=== PATIENT | female | born 1985 | race African-American/Black ===

== ENCOUNTER 2019-06-11 07:35 | Emergency (ER) | payer SELFPAY ==
[~2019-06-11] VITALS: Ht 160 cm; Wt 63.5 kg
--- NOTE | 2019-06-11 08:12 | PHYS DOC ---
Past Medical History Past Medical History: Anemia Past Surgical History: No Surgical History Alcohol Use: Occasionally Drug Use: None Adult General Chief Complaint Chief Complaint: ABDOMINAL PAIN HPI HPI Patient is a 34 year old female with history of chronic anemia who presents with complaint of abdominal pain and back pain. Patient complaining of right lower quadrant pain as a constant cramping pain for the last 3 days with low back pain and rated her pain 8/10. Patient complaining of urinary frequency and dysuria without hematuria for the same time and states she had hematuria with the same symptom previously. Patient complaining of anorexia without nausea and vomiting, fever and chills, vaginal bleeding or discharge. Review of Systems Review of Systems Constitutional: Denies fever or chills [] Eyes: Denies change in visual acuity, redness, or eye pain [] HENT: Denies nasal congestion or sore throat [] Respiratory: Denies cough or shortness of breath [] Cardiovascular: No additional information not addressed in HPI [] GI: Denies nausea, vomiting, bloody stools or diarrhea , reports abdominal pain[] : Denies hematuria , reports dysuria and frequency[] Musculoskeletal: Reports back pain Integument: Denies rash or skin lesions [] Neurologic: Denies headache, focal weakness or sensory changes [] Endocrine: Denies polyuria or polydipsia [] All other systems were reviewed and found to be within normal limits, except as documented in this note. Current Medications Current Medications Current Medications Medications (Trade) Dose Ordered Sig/[place] Start Time Stop Time Status Last Admin Dose Admin Fentanyl Citrate (Fentanyl 2ml Vial) 50 mcg 1X ONCE 06/11/19 10:15 06/11/19 10:16 DC 06/11/19 10:12 50 MCG Ketorolac Tromethamine (Toradol 30mg Vial) 30 mg 1X ONCE 06/11/19 09:00 06/11/19 09:01 DC 06/11/19 09:17 30 MG Medroxyprogesterone Acetate (Depo-Provera Im) 150 mg 1X ONCE 06/11/19 14:00 06/11/19 14:01 UNV Ondansetron HCl (Zofran) 4 mg 1X ONCE 06/11/19 10:15 06/11/19 10:16 DC 06/11/19 10:12 4 MG Sodium Chloride 1,000 ml @ 1,000 mls/hr Q1H 06/11/19 08:12 06/11/19 09:11 DC 06/11/19 08:49 1,000 MLS/HR Allergies Allergies Allergies Coded Allergies Type Severity Reaction Last Updated Verified acetaminophen Allergy Unknown 06/11/19 Yes Physical Exam Physical Exam Constitutional: Well developed, well nourished, mild distress, non-toxic appearance. [] HENT: Normocephalic, atraumatic. Eyes: PERRLA, EOMI, conjunctiva normal, no discharge. [] Neck: Normal range of motion, no tenderness, supple, no stridor. [] Cardiovascular:Heart rate regular rhythm, no murmur [] Lungs & Thorax: Bilateral breath sounds clear to auscultation [] Abdomen: Bowel sounds normal, soft, right lower quadrant guarding, no tenderness, no masses, no pulsatile masses. [] Skin: Warm, dry, no erythema, no rash. [] Back: No tenderness, no CVA tenderness. [] Extremities: No tenderness, no cyanosis, no clubbing, ROM intact, no edema. [] Neurologic: Alert and oriented X 3, no focal deficits noted. [] Psychologic: Affect normal, judgement normal, mood normal. [] Current Patient Data Vital Signs Vital Signs Date Time Temp Pulse Resp B/P (MAP) Pulse Ox O2 Delivery O2 Flow Rate FiO2 06/11/19 07:50 97.9 81 18 122/72 (89) 100 Room Air 97.9 Lab Values Laboratory Tests Test 06/11/19 07:38 06/11/19 07:48 06/11/19 08:00 Urine Collection Type Unknown Urine Color [place] Urine Clarity Clear Urine pH 5.5 Urine Specific [place] >=1.030 Urine Protein Negative mg/dL (NEG-TRACE) Urine Glucose (UA) Negative mg/dL (NEG) Urine Ketones (Stick) Negative mg/dL (NEG) Urine Blood Negative (NEG) Urine Nitrite Negative (NEG) Urine Bilirubin Negative (NEG) Urine Urobilinogen Dipstick 0.2 mg/dL (0.2 mg/dL) Urine Leukocyte Esterase Negative (NEG) Urine RBC Occ /HPF (0-2) Urine WBC 1-4 /HPF (0-4) Urine Squamous Epithelial Cells Mod /LPF Urine Bacteria 0 /HPF (0-FEW) Urine Mucus Marked /LPF Sodium Level 142 mmol/L (136-145) Potassium Level 3.5 mmol/L (3.5-5.1) Chloride Level 106 mmol/L (98-107) Carbon Dioxide Level 22 mmol/L (21-32) Anion Gap 14 (6-14) Blood Urea Nitrogen 8 mg/dL (7-20) Creatinine 0.7 mg/dL (0.6-1.0) Estimated GFR (Cockcroft-Gault) 114.6 BUN/Creatinine Ratio 11 (6-20) Glucose Level 96 mg/dL (70-99) Calcium Level 9.0 mg/dL (8.5-10.1) Total Bilirubin 0.6 mg/dL (0.2-1.0) Aspartate Amino Transferase (AST) 15 U/L (15-37) Alanine Aminotransferase (ALT) 13 U/L (14-59) L Alkaline Phosphatase 59 U/L (46-116) Total Protein 8.3 g/dL (6.4-8.2) H Albumin 4.1 g/dL (3.4-5.0) Albumin/Globulin Ratio 1.0 (1.0-1.7) Lipase 91 U/L (73-393) POC Urine HCG, Qualitative Hcg negative (Negative) White Blood Count 5.0 x10^3/uL (4.0-11.0) Red Blood Count 4.37 x10^6/uL (3.50-5.40) Hemoglobin 7.1 g/dL (12.0-15.5) L Hematocrit 25.3 % (36.0-47.0) L Mean Corpuscular Volume 58 fL (79-100) L Mean Corpuscular Hemoglobin 16 pg (25-35) L Mean Corpuscular Hemoglobin Concent 28 g/dL (31-37) L Red Cell Distribution Width 20.5 % (11.5-14.5) H Platelet Count 350 x10^3/uL (140-400) Neutrophils (%) (Auto) 54 % (31-73) Lymphocytes (%) (Auto) 35 % (24-48) Monocytes (%) (Auto) 9 % (0-9) Eosinophils (%) (Auto) 1 % (0-3) Basophils (%) (Auto) 1 % (0-3) Neutrophils # (Auto) 2.7 x10^3/uL (1.8-7.7) Lymphocytes # (Auto) 1.7 x10^3/uL (1.0-4.8) Monocytes # (Auto) 0.4 x10^3/uL (0.0-1.1) Eosinophils # (Auto) 0.1 x10^3/uL (0.0-0.7) Basophils # (Auto) 0.1 x10^3/uL (0.0-0.2) Platelet Estimate Adequate (ADEQUATE) Large Platelets Mod Giant Platelets Occ Hypochromasia Marked Poikilocytosis Present Anisocytosis Present Microcytosis Marked Ovalocytes Present Schistocytes Occ Laboratory Tests 06/11/19 08:00 Laboratory Tests 06/11/19 07:38 EKG EKG [] Radiology/Procedures Radiology/Procedures [][facility] [address] [place] [address] IMAGING REPORT Signed PATIENT: RYAN CUNNINGHAM ACCOUNT: [id number] : 1985 LOCATION: ER AGE: 34 SEX: F EXAM STATUS: REG ER ORD. PHYSICIAN: CRISTOFER MONTILLA MD REASON: right lower quadrant pain for 3 days PROCEDURE: CT ABDOMEN PELVIS WO CONTRAST EXAM: CT ABDOMEN/PELVIS WITHOUT CONTRAST. HISTORY: Right lower quadrant pain. TECHNIQUE: Computed tomography of the abdomen and pelvis was performed without intravenous contrast. COMPARISON: None. FINDINGS: Lung windows through the visualized portions of the bases reveal mild atelectasis. Bone windows reveal no suspicious lesions. There are no renal or ureteral calculi. The kidneys are unremarkable without contrast. The liver, gallbladder, pancreas, adrenal glands and spleen are unremarkable without contrast. There are no pathologically enlarged lymph nodes. The appendix is not inflamed. There is no small bowel obstruction. The uterus is enlarged measuring approximately 15 x 10 cm. Myometrial fibroids are suspected posteriorly. One exophytic fibroid is noted inferiorly along the dome of the bladder measuring 2.9 cm. The right ovary is displaced into the false pelvis and contains a cyst or dominant follicle measuring up to 4.2 x 3.6 cm. The left ovary appears to be posterior in the left hemipelvis and also contains a cyst or dominant follicle measuring 4.8 x 3.6 cm. IMPRESSION: 1. The uterus is enlarged, likely by multiple fibroids. 2. The right ovary is displaced into the right false pelvis. There appear to be large follicles or small cysts in both ovaries measuring up to 4.8 cm on the left. Pelvic ultrasound could further evaluate and exclude potential causes of pain such as ovarian torsion. *One or more of the following individualized dose reduction techniques were utilized for this examination: 1. Automated exposure control. 2. Adjustment of the mA and/or kV according to patient size. 3. Use of iterative reconstruction technique. Electronically signed by: Bandar Gannon MD (06/11/2019 10:28 AM) [facility] DICTATED and SIGNED BY: POLA GANNON MD DATE: 06/11/19 1028 [facility] [address] [place] [address] IMAGING REPORT Signed PATIENT: RYAN CUNNINGHAM ACCOUNT: [id number] : 1985 LOCATION: ER AGE: 34 SEX: F EXAM STATUS: REG ER ORD. PHYSICIAN: CRISTOFER MONTILLA MD REASON: ovarian cyst and right lower quadrant pain PROCEDURE: PELVIS ULTRASOUND EXAM: Pelvic ultrasound HISTORY: Right lower quadrant and pelvic pain. Uterine enlargement, bilateral ovarian enlargement. COMPARISON: Today's CT. FINDINGS: Sonographic evaluation of the pelvis was performed transabdominally and transvaginally. The uterus is anteverted and measures 16.5 x 9.5 x 9.0 cm. It is enlarged by multiple fibroids. Most are myometrial. The largest measures 6.6 x 5.6 x 5.5 and exophytic fibroid along the bladder dome/anterior fundus measures 2.3 x 2.2 cm. Multiple other similar sized fibroids are noted. The endometrial stripe measures 11 mm. There is no significant free fluid. The right ovary measures 6.3 x 4.9 x 4.9 cm. It contains a 4.3 x 4.0 x 3.5 cm follicle or small cyst containing low-level internal echoes consistent with some hemorrhagic contents. There is no internal perfusion. The left ovary measures 5.6 x 6.6 x 4.9 cm. It also contains a complicated cyst or follicle measuring 4.5 x 4.1 x 3.4 cm. There is no internal perfusion. There is normal Doppler flow in both ovaries without evidence of torsion. There are no clearly suspicious lesions. IMPRESSION: 1. Both ovaries contain complicated/hemorrhagic follicles or small cysts measuring up to 4.5 cm on the left. Benignity is favored in this demographic. Follow-up could be performed in 3 months to confirm resolution if there is persistent concern. 2. The uterus is enlarged to 16.5 cm by multiple fibroids measuring up to 6.6 cm. Electronically signed by: Bandar Gannon MD (06/11/2019 1:19 PM) [facility] DICTATED and SIGNED BY: POLA GANNON MD DATE: 06/11/19 9904 Course & Med Decision Making Course & Med Decision Making Pertinent Labs and Imaging studies reviewed. (See chart for details) Evaluation of patient in ER showed 34-year-old female patient with history of chronic anemia and heavy vaginal bleeding presented with right lower quadrant pain for 3 days. Patient had guarding of right upper quadrant and unremarkable labs except for hemoglobin of 7.1 with history of chronic anemia. CT of abdomen and pelvis and pelvic ultrasound showed multiple hemorrhagic ovarian cyst bilaterally without significant free fluid in the abdomen, on-call PATIENT REGISTRATION SUPERVISOR physician Dr. Moser was consulted at 1348 and recommended to give a dose of Depo- Provera 150 mg IM and discharge patient home with instruction to follow up with PATIENT REGISTRATION SUPERVISOR. Dragon Disclaimer Dragon Disclaimer This electronic medical record was generated, in whole or in part, using a voice recognition dictation system. Departure Departure Impression: Primary Impression: Hemorrhagic ovarian cyst Additional Impressions: Right lower quadrant pain Chronic anemia Uterus fibroma Disposition: 01 HOME, SELF-CARE (At 1400) Condition: IMPROVED Referrals: NO PCP (PCP) FER ANAYA MD Patient Instructions: Abnormal Uterine Bleeding, Anemia, FAQs, Ovarian Cyst Additional Instructions: Drink plenty of liquids Follow-up with PATIENT REGISTRATION SUPERVISOR physician in 2-3 days Return to ER if not getting better Take [id number] iron pills 3 times a day Scripts Tramadol Hcl (ULTRAM) 50 Mg Tablet 50 MG PO Q6HRS PRN for PAIN, #14 TAB 0 Refills Prov: CRISTOFER MONTILLA MD 06/11/19 Problem Qualifiers Additional Impressions: Uterus fibroma Uterine leiomyoma location: unspecified location Qualified Codes: D25.9 - Leiomyoma of uterus, unspecified CRISTOFER MONTILLA MD Jun 11, 2019 08:12
[2019-06-11 08:22] LABS: BASO # 0.1 x10^3/uL (0.0-0.2); BASO % 1 % (0-3); EOS # 0.1 x10^3/uL (0.0-0.7); EOS % 1 % (0-3); HEMATOCRIT 25.3 % (36.0-47.0); HEMOGLOBIN 7.1 g/dL (12.0-15.5); LYMPH # 1.7 x10^3/uL (1.0-4.8); LYMPH % 35 % (24-48); MEAN CORPUSCULAR HEMOGLOBIN 16 pg (25-35); MEAN CORPUSCULAR HGB CONC 28 g/dL (31-37); MEAN CORPUSCULAR VOLUME 58 fL (79-100); MONO # 0.4 x10^3/uL (0.0-1.1); MONO % 9 % (0-9); NEUT # 2.7 x10^3/uL (1.8-7.7); NEUT % 54 % (31-73); PLATELET COUNT 350 x10^3/uL (140-400); RED BLOOD COUNT 4.37 x10^6/uL (3.50-5.40); RED CELL DISTRIBUTION WIDTH 20.5 % (11.5-14.5)
[2019-06-11 08:27] LABS: BILIRUBIN,URINE NEGATIVE (NEG); CLARITY,URINE CLEAR; COLOR,URINE AMBER; NITRITE,URINE NEGATIVE (NEG); PH,URINE 5.5; PROTEIN,URINE NEGATIVE (NEG-TRACE); UROBILINOGEN,URINE 0.2 mg/dL (0.2 mg/dL)
[2019-06-11 08:41] LABS: CREATININE 0.7 mg/dL (0.6-1.0); GFR 114.6; POTASSIUM 3.5 mmol/L (3.5-5.1)
[2019-06-11 08:45] LABS: ALBUMIN 4.1 g/dL (3.4-5.0); TOTAL BILIRUBIN 0.6 mg/dL (0.2-1.0); TOTAL PROTEIN 8.3 g/dL (6.4-8.2)
[2019-06-11] MEDS: IV NORMAL SALINE 1000ML BAG 1,000 ML IV SCH (08:49)
[2019-06-11 08:52] LABS: BACTERIA,URINE 0 /HPF (0-FEW); RBC,URINE OCC /HPF (0-2); SQUAMOUS EPITHELIAL CELL,UR MOD /LPF
[2019-06-11] MEDS: KETOROLAC 30 MG/ML VIAL. IVP ONE (09:17)
[2019-06-11 09:21] VITALS: BP 123/71
[2019-06-11] MEDS: fentaNYL PF VIAL 100 MCG/2 ML VIAL IVP ONE (10:12)
[2019-06-11] MEDS: ONDANSETRON PF 4 MG/2 ML VIAL. IV ONE (10:12)
--- NOTE | 2019-06-11 10:31 | RAD ---
EXAM: CT ABDOMEN/PELVIS WITHOUT CONTRAST. HISTORY: Right lower quadrant pain. TECHNIQUE: Computed tomography of the abdomen and pelvis was performed without intravenous contrast. COMPARISON: None. FINDINGS: Lung windows through the visualized portions of the bases reveal mild atelectasis. Bone windows reveal no suspicious lesions. There are no renal or ureteral calculi. The kidneys are unremarkable without contrast. The liver, gallbladder, pancreas, adrenal glands and spleen are unremarkable without contrast. There are no pathologically enlarged lymph nodes. The appendix is not inflamed. There is no small bowel obstruction. The uterus is enlarged measuring approximately 15 x 10 cm. Myometrial fibroids are suspected posteriorly. One exophytic fibroid is noted inferiorly along the dome of the bladder measuring 2.9 cm. The right ovary is displaced into the false pelvis and contains a cyst or dominant follicle measuring up to 4.2 x 3.6 cm. The left ovary appears to be posterior in the left hemipelvis and also contains a cyst or dominant follicle measuring 4.8 x 3.6 cm. IMPRESSION: 1. The uterus is enlarged, likely by multiple fibroids. 2. The right ovary is displaced into the right false pelvis. There appear to be large follicles or small cysts in both ovaries measuring up to 4.8 cm on the left. Pelvic ultrasound could further evaluate and exclude potential causes of pain such as ovarian torsion. *One or more of the following individualized dose reduction techniques were utilized for this examination: 1. Automated exposure control. 2. Adjustment of the mA and/or kV according to patient size. 3. Use of iterative reconstruction technique. Electronically signed by: Bandar Gannon MD (06/11/2019 10:28 AM) [facility]
--- NOTE | 2019-06-11 11:22 | RAD ---
Single AP plain film of the pelvis was performed. History: Right lower quadrant pain Comparison: CT from the same day. No fracture or acute bony injury is seen. The femoral heads are located in the acetabula. No significant degenerative changes are identified. Bowel gas is present in the rectum. Impression: Unremarkable plain film exam of the pelvis. Electronically signed by: Chip Segovia MD (06/11/2019 11:19 AM) [id number]
[2019-06-11 11:27] LABS: PLT ESTIMATE ADEQUATE (ADEQUATE)
[2019-06-11 11:28] LABS: ANISOCYTOSIS PRESENT; HYPOCHROMIA MARKED; MICROCYTOSIS MARKED
[2019-06-11 11:30] LABS: OVALOCYTES PRESENT; POIKILOCYTOSIS PRESENT; SCHISTOCYTES OCC
--- NOTE | 2019-06-11 13:21 | RAD ---
EXAM: Pelvic ultrasound HISTORY: Right lower quadrant and pelvic pain. Uterine enlargement, bilateral ovarian enlargement. COMPARISON: Today's CT. FINDINGS: Sonographic evaluation of the pelvis was performed transabdominally and transvaginally. The uterus is anteverted and measures 16.5 x 9.5 x 9.0 cm. It is enlarged by multiple fibroids. Most are myometrial. The largest measures 6.6 x 5.6 x 5.5 and exophytic fibroid along the bladder dome/anterior fundus measures 2.3 x 2.2 cm. Multiple other similar sized fibroids are noted. The endometrial stripe measures 11 mm. There is no significant free fluid. The right ovary measures 6.3 x 4.9 x 4.9 cm. It contains a 4.3 x 4.0 x 3.5 cm follicle or small cyst containing low-level internal echoes consistent with some hemorrhagic contents. There is no internal perfusion. The left ovary measures 5.6 x 6.6 x 4.9 cm. It also contains a complicated cyst or follicle measuring 4.5 x 4.1 x 3.4 cm. There is no internal perfusion. There is normal Doppler flow in both ovaries without evidence of torsion. There are no clearly suspicious lesions. IMPRESSION: 1. Both ovaries contain complicated/hemorrhagic follicles or small cysts measuring up to 4.5 cm on the left. Benignity is favored in this demographic. Follow-up could be performed in 3 months to confirm resolution if there is persistent concern. 2. The uterus is enlarged to 16.5 cm by multiple fibroids measuring up to 6.6 cm. Electronically signed by: Bandar Gannon MD (06/11/2019 1:19 PM) [facility]
[2019-06-11] MEDS ORDERED: TRAM-48 PO (13:58)
[2019-06-11] MEDS: medroxyPROGESTERone IM 150 MG/ML VIAL. IM ONE (14:04)
== END 2019-06-11 14:12 | disposition home or self-care (01) ==
LOC: ER 07:35
DX: D25.9 Leiomyoma of uterus, unspecified (principal); N83.202 Unspecified ovarian cyst, left side; N83.201 Unspecified ovarian cyst, right side; D64.9 Anemia, unspecified; Z88.6 Allergy status to analgesic agent
CPT/HCPCS: 36415; 72170; 74176; 76856; 80053; 81001; 81025; 83690; 85025; 96372; 96374; 96375; 99285; J1885; J2405; J3010; J7030

== ENCOUNTER 2019-07-03 16:32 | Emergency (ER) | payer BC ==
[~2019-07-03] VITALS: Ht 160 cm; Wt 62.1 kg
[~2019-07-03 16:32] MED LIST: TRAM-48 PO
[2019-07-03] MEDS ORDERED: KETOROLAC 30 MG/ML VIAL. IV ONE (18:30)
[2019-07-03] MEDS ORDERED: ONDANSETRON PF 4 MG/2 ML VIAL. IV ONE (18:30)
[2019-07-03] MEDS ORDERED: MORPHINE SULFATE 4 MG/ML VIAL. IV ONE (18:30)
--- NOTE | 2019-07-03 18:37 | PHYS DOC ---
Past Medical History Past Medical History: Anemia Past Surgical History: No Surgical History Alcohol Use: Occasionally Drug Use: None Adult General Chief Complaint Chief Complaint: ABDOMINAL PAIN HPI HPI 34 yo female presents to the ER with complaints of abdominal pain. Patient seen here on 06/11 with diagnosis of hemorrhagic ovarian cyst, bilaterally. Patient scheduled for follow up at [facility] however unable to get appointment with POST OFFICE MANAGER until August. She presents today with increased abd pain. Patient states she has nausea, pressure sensation. Records reviewed from 06/11. Movements make her pain worse. Patient as well has a history of anemia. Nothing makes her pain better. Review of Systems Review of Systems Constitutional: occasional fever Respiratory: Denies cough or shortness of breath [] Cardiovascular: No additional information not addressed in HPI [] GI: + abdominal pain, occasional nausea : Denies dysuria or hematuria [] Musculoskeletal: Denies back pain or joint pain [] Neurologic: Denies headache, focal weakness or sensory changes [] All other systems were reviewed and found to be within normal limits, except as documented in this note. Current Medications Current Medications Current Medications Medications (Trade) Dose Ordered Sig/[facility] Start Time Stop Time Status Last Admin Dose Admin Ketorolac Tromethamine (Toradol 30mg Vial) 30 mg 1X ONCE 07/03/19 18:30 07/03/19 18:31 DC 07/03/19 18:48 30 MG Morphine Sulfate (Morphine Sulfate) 4 mg 1X ONCE 07/03/19 18:30 07/03/19 18:31 DC 07/03/19 18:49 4 MG Ondansetron HCl (Zofran) 4 mg 1X ONCE 07/03/19 18:30 07/03/19 18:31 DC 07/03/19 18:46 4 MG Allergies Allergies Allergies Coded Allergies Type Severity Reaction Last Updated Verified acetaminophen Allergy Unknown 06/11/19 Yes Physical Exam Physical Exam Constitutional: Well developed, well nourished, no acute distress, non-toxic appearance. [] HENT: Normocephalic, atraumatic, bilateral external ears normal, oropharynx moist, no oral exudates, nose normal. [] Eyes: PERRLA, EOMI, conjunctiva normal, no discharge. [] Cardiovascular:Heart rate regular rhythm, no murmur [] Lungs & Thorax: Bilateral breath sounds clear to auscultation [] Abdomen: Bowel sounds normal, soft, tender to palpation bilateral lower quadrant, no masses, no pulsatile masses. [] Skin: Warm, dry, no erythema, no rash. [] Back: No tenderness, no CVA tenderness. [] Extremities: No tenderness, no edema. [] Neurologic: Alert and oriented X 3, no focal deficits noted. [] Psychologic: Affect normal, judgement normal, mood normal. [] Current Patient Data Vital Signs Vital Signs Date Time Temp Pulse Resp B/P (MAP) Pulse Ox O2 Delivery O2 Flow Rate FiO2 07/03/19 18:49 18 99 Room Air 07/03/19 17:55 99.2 80 124/65 (84) 99.2 Lab Values Laboratory Tests Test 07/03/19 17:50 07/03/19 18:00 07/03/19 18:40 Urine Collection Type Unknown Urine Color Yellow Urine Clarity Clear Urine pH 6.0 Urine Specific [place] 1.025 Urine Protein Negative mg/dL (NEG-TRACE) Urine Glucose (UA) Negative mg/dL (NEG) Urine Ketones (Stick) Negative mg/dL (NEG) Urine Blood Large (NEG) Urine Nitrite Negative (NEG) Urine Bilirubin Negative (NEG) Urine Urobilinogen Dipstick 0.2 mg/dL (0.2 mg/dL) Urine Leukocyte Esterase Small (NEG) Urine RBC 6-10 /HPF (0-2) Urine WBC 11-20 /HPF (0-4) Urine Squamous Epithelial Cells Mod /LPF Urine Bacteria Few /HPF (0-FEW) Urine Mucus Mod /LPF POC Urine HCG, Qualitative Hcg negative (Negative) White Blood Count 5.6 x10^3/uL (4.0-11.0) Red Blood Count 4.26 x10^6/uL (3.50-5.40) Hemoglobin 6.8 g/dL (12.0-15.5) *L Hematocrit 23.9 % (36.0-47.0) L Mean Corpuscular Volume 56 fL (79-100) L Mean Corpuscular Hemoglobin 16 pg (25-35) L Mean Corpuscular Hemoglobin Concent 28 g/dL (31-37) L Red Cell Distribution Width 20.7 % (11.5-14.5) H Platelet Count 373 x10^3/uL (140-400) Neutrophils (%) (Auto) 59 % (31-73) Lymphocytes (%) (Auto) 32 % (24-48) Monocytes (%) (Auto) 6 % (0-9) Eosinophils (%) (Auto) 1 % (0-3) Basophils (%) (Auto) 2 % (0-3) Neutrophils # (Auto) 3.3 x10^3/uL (1.8-7.7) Lymphocytes # (Auto) 1.8 x10^3/uL (1.0-4.8) Monocytes # (Auto) 0.4 x10^3/uL (0.0-1.1) Eosinophils # (Auto) 0.1 x10^3/uL (0.0-0.7) Basophils # (Auto) 0.1 x10^3/uL (0.0-0.2) Platelet Estimate Adequate (ADEQUATE) Polychromasia Occasional Hypochromasia Marked Poikilocytosis Slight Anisocytosis Mod Microcytosis Marked Tear Drop Cells Occ Ovalocytes Occ Schistocytes Occ Sodium Level 139 mmol/L (136-145) Potassium Level 3.8 mmol/L (3.5-5.1) Chloride Level 105 mmol/L (98-107) Carbon Dioxide Level 23 mmol/L (21-32) Anion Gap 11 (6-14) Blood Urea Nitrogen 8 mg/dL (7-20) Creatinine 0.6 mg/dL (0.6-1.0) Estimated GFR (Cockcroft-Gault) 136.9 BUN/Creatinine Ratio 13 (6-20) Glucose Level 86 mg/dL (70-99) Calcium Level 8.9 mg/dL (8.5-10.1) Total Bilirubin 0.5 mg/dL (0.2-1.0) Aspartate Amino Transferase (AST) 11 U/L (15-37) L Alanine Aminotransferase (ALT) 14 U/L (14-59) Alkaline Phosphatase 47 U/L (46-116) Total Protein 7.7 g/dL (6.4-8.2) Albumin 3.8 g/dL (3.4-5.0) Albumin/Globulin Ratio 1.0 (1.0-1.7) Laboratory Tests 07/03/19 18:40 Laboratory Tests 07/03/19 18:40 EKG EKG [] Radiology/Procedures Radiology/Procedures [] Course & Med Decision Making Course & Med Decision Making Pertinent Labs and Imaging studies reviewed. (See chart for details) []34 yo female presents to the ER with complaints of abdominal pain. Patient seen here on 06/11 with diagnosis of hemorrhagic ovarian cyst, bilaterally. Patient scheduled for follow up at [facility] however unable to get appointment with POST OFFICE MANAGER until August. She presents today with increased abd pain. Patient states she has nausea, pressure sensation. Records reviewed from 06/11. Movements make her pain worse. Patient as well has a history of anemia. Nothing makes her pain better. Laboratory values reviewed, Hemoglobin 7.1 on June 11 now 6.8. Patient with evidence of urinary tract infection. Evaluation revealed from previous hospitalization in ER visit with evidence of hemorrhagic cysts. She received Zofran, morphine, Toradol with improvement of her pain. We'll plan for by mouth and back therapy for approximately 3-5 days. Would recommend anti-inflammatory upon discharge. Patient to continue her follow-up appointment as scheduled in 2019 at [facility] with POST OFFICE MANAGER. Anastasiia Disclaimer Anastasiia Disclaimer This electronic medical record was generated, in whole or in part, using a voice recognition dictation system. Departure Departure Impression: Primary Impression: Hemorrhagic cyst Additional Impression: Anemia Disposition: HOME, SELF-CARE Condition: STABLE Referrals: NO PCP (PCP) Patient Instructions: Anemia, Nonspecific-Brief, Urinary Tract Infection Additional Instructions: Recommend follow up with PCP 3 - 5 days Return to the ER with worsening symptoms, intractable pain, fever, altered mental status Tylenol/Motrin as needed for pain Take antibiotics as directed diclofenac as directed Scripts Cephalexin (KEFLEX) 500 Mg Capsule 2 CAP PO Q12HR for 3 Days, #12 CAP Prov: BOBBY NOVAK MD 07/03/19 Diclofenac Sodium (DICLOFENAC SODIUM) 50 Mg Tablet.dr 1 TAB PO BID PRN for PAIN for 5 Days, #10 TAB 1 Refill Prov: BOBBY NOVAK MD 07/03/19 Problem Qualifiers Additional Impression: Anemia Anemia type: unspecified type Qualified Codes: D64.9 - Anemia, unspecified BOBBY NOVAK MD Jul 03, 2019 18:37
[2019-07-03 18:44] LABS: BILIRUBIN,URINE NEGATIVE (NEG); CLARITY,URINE CLEAR; COLOR,URINE YELLOW; NITRITE,URINE NEGATIVE (NEG); PROTEIN,URINE NEGATIVE (NEG-TRACE); UROBILINOGEN,URINE 0.2 mg/dL (0.2 mg/dL)
[2019-07-03 18:51] LABS: BACTERIA,URINE FEW /HPF (0-FEW); SQUAMOUS EPITHELIAL CELL,UR MOD /LPF
[2019-07-03 18:55] LABS: BASO # 0.1 x10^3/uL (0.0-0.2); BASO % 2 % (0-3); EOS # 0.1 x10^3/uL (0.0-0.7); EOS % 1 % (0-3); HEMATOCRIT 23.9 % (36.0-47.0); LYMPH # 1.8 x10^3/uL (1.0-4.8); LYMPH % 32 % (24-48); MEAN CORPUSCULAR HEMOGLOBIN 16 pg (25-35); MEAN CORPUSCULAR HGB CONC 28 g/dL (31-37); MEAN CORPUSCULAR VOLUME 56 fL (79-100); MONO # 0.4 x10^3/uL (0.0-1.1); MONO % 6 % (0-9); NEUT # 3.3 x10^3/uL (1.8-7.7); NEUT % 59 % (31-73); PLATELET COUNT 373 x10^3/uL (140-400); RED BLOOD COUNT 4.26 x10^6/uL (3.50-5.40); RED CELL DISTRIBUTION WIDTH 20.7 % (11.5-14.5); WHITE BLOOD COUNT 5.6 x10^3/uL (4.0-11.0)
[2019-07-03 18:58] LABS: HEMOGLOBIN 6.8 g/dL (12.0-15.5)
[2019-07-03 19:00] LABS: CALCIUM 8.9 mg/dL (8.5-10.1); CREATININE 0.6 mg/dL (0.6-1.0); GFR 136.9; POTASSIUM 3.8 mmol/L (3.5-5.1)
[2019-07-03 19:06] LABS: ALBUMIN 3.8 g/dL (3.4-5.0); TOTAL BILIRUBIN 0.5 mg/dL (0.2-1.0); TOTAL PROTEIN 7.7 g/dL (6.4-8.2)
[2019-07-03 19:17] LABS: ANISOCYTOSIS MOD; HYPOCHROMIA MARKED; MICROCYTOSIS MARKED; PLT ESTIMATE ADEQUATE (ADEQUATE); POIKILOCYTOSIS SLIGHT; TEAR DROP CELLS OCC
[2019-07-03 19:18] LABS: OVALOCYTES OCC; SCHISTOCYTES OCC
[2019-07-03 19:19] LABS: POLYCHROMASIA OCCASIONAL
[2019-07-03] MEDS ORDERED: DICL50TA4 PO (20:37)
[2019-07-03] MEDS ORDERED: CEPH-264 PO (20:37)
[2019-07-03 20:45] VITALS: BP 101/55
== END 2019-07-03 20:50 | disposition home or self-care (01) ==
LOC: ER 16:32
DX: N83.202 Unspecified ovarian cyst, left side (principal); N83.201 Unspecified ovarian cyst, right side; D64.9 Anemia, unspecified; Z86.2 Personal history of diseases of the blood and blood-forming organs and certain disorders involving the immune mechanism; Z88.0 Allergy status to penicillin
CPT/HCPCS: 36415; 80053; 81001; 81025; 85025; 87086; 96374; 96375; 99284; J1885; J2270; J2405

== ENCOUNTER 2019-09-24 22:00 | Emergency (ER) | payer BC ==
[~2019-09-24 22:00] MED LIST changes: +CEPH-264 PO; +DICL50TA4 PO
== END 2019-09-25 00:26 | disposition left against medical advice (07) ==
LOC: ER 22:00
DX: R10.9 Unspecified abdominal pain (principal); Z53.21 Procedure and treatment not carried out due to patient leaving prior to being seen by health care provider